=== PATIENT | male | born 1985 | race African-American/Black ===

== ENCOUNTER 2021-03-11 03:53 | Inpatient (IN) | payer MEDICAID ==
[~2021-03-11] VITALS: Ht 200.7 cm; Wt 107.0 kg
[2021-03-11] MEDS ORDERED: SODIUM CHLORIDE 0.9% 1,000 ML IV ONE (04:15)
[2021-03-11 05:30] LABS: BASOPHILS % 0.4 % (0.0-2.0); EOSINOPHILS % 0.1 % (0.0-5.0); HEMATOCRIT. 45.2 % (42.0-52.0); LYMPHOCYTES % 19.9 % (20.0-50.0); MEAN CORPUSCULAR HEMOGLOBIN 30.2 pg (28.0-32.0); MEAN CORPUSCULAR VOLUME 90.7 fL (80.0-94.0); MEAN PLATELET VOLUME 9.8 fl (7.4-10.4); MONOCYTES % 10.1 % (2.0-8.0); NEUTROPHILS % 69.5 % (40.0-76.0); PLATELET 143 x1000/uL (130-400); RED BLOOD CELL COUNT 4.98 mill/uL (4.7-6.1); RED CELL DISTRIBUTION WIDTH 13.7 % (11.6-14.6)
[2021-03-11 05:30] LABS: BG BASE EXCESS -15.1 mmol/L (-2.0-2.0); BG CARBOXYHEMOGLOBIN 0.1 % (0.5-1.5); BG DEOXYHEMOGLOBIN 1.3 % (0.0-5.0); BG HCO3 ACT 9.5 mmol/L (22.0-26.0); BG METHEMOGLOBIN 0.1 % (0.0-1.5); BG OXYGEN SATURATION 98.7 % (92.0-98.5); BG OXYHEMOGLOBIN 98.5 % (94.0-97.0); BG PCO2 21.1 mmHg (35.0-45.0); BG PO2 156.4 mmHg (75.0-100.0)
[2021-03-11 05:36] LABS: CHLORIDE 108 mEq/L (98-107)
[2021-03-11 05:41] LABS: ETHANOL BLOOD < 10 mg/dL
[2021-03-11] MEDS ORDERED: INSULIN REGULAR (DRIP) 100 UNITS in SODIUM CHLORIDE 0.9% 99 ML IV ONE (05:45)
[2021-03-11] MEDS ORDERED: INSULIN REGULAR (DRIP) 100 UNITS in SODIUM CHLORIDE 0.9% 99 ML IV NR (06:00)
[2021-03-11 07:03] LABS: *AMPHETAMINES SCREEN URINE NEGATIVE (NEGATIVE); *BARBITURATES SCREEN URINE NEGATIVE (NEGATIVE)
[2021-03-11 07:05] LABS: *BENZODIAZEPINES SCREEN URINE NEGATIVE (NEGATIVE); *COCAINE SCREEN URINE NEGATIVE (NEGATIVE); CANNABINOID URINE SCREEN NEGATIVE (NEGATIVE); METHADONE URINE SCREEN NEGATIVE (NEGATIVE); OPIATES URINE SCREEN NEGATIVE (NEGATIVE); PHENCYCLIDINE URINE SCREEN NEGATIVE (NEGATIVE)
[2021-03-11] MEDS ORDERED: KETOROLAC 15MG/ML VIAL IV PRN (07:30)
[2021-03-11] MEDS ORDERED: NITROGLYCERIN 0.4MG TABLET SL SL PRN (07:30)
[2021-03-11] MEDS ORDERED: ENOXAPARIN 40MG/0.4ML SYR SUBCUT SCH (07:30)
[2021-03-11] MEDS ORDERED: ZOLPIDEM TARTRATE 5MG TABLET PO PRN (07:30)
[2021-03-11] MEDS ORDERED: DEXTROSE 50% WATER 50ML SYRINGE IV PRN ×2 (07:30)
[2021-03-11] MEDS ORDERED: ACETAMINOPHEN 325MG TABLET PO PRN ×2 (07:30)
[2021-03-11] MEDS ORDERED: ONDANSETRON HCL 4MG/2ML INJ IV PRN (07:30)
[2021-03-11] MEDS ORDERED: GUAIFENESIN 200MG/10ML SUGAR FREE UDC PO PRN (07:30)
[2021-03-11] MEDS ORDERED: IPRATROPIUM/ALBUTEROL 0.5-3(2.5)MG/3ML NEB NEB PRN (07:30)
[2021-03-11] MEDS ORDERED: DOCUSATE SODIUM 100MG CAPSULE PO PRN (07:30)
[2021-03-11] MEDS: BLOOD SUGAR DIAGNOSTIC STRIP TEST SCH ×16 (08:23→23:41)
[2021-03-11] MEDS: SODIUM CHLORIDE 0.9% 1,000 ML IV SCH ×3 (08:26→21:37)
[2021-03-11 08:31] LABS: FOLIC ACID (FOLATE) SERUM >20 ng/mL ng/mL (>5.38)
[2021-03-11 08:42] LABS: VITAMIN B12 SERUM >2000 pg/mL pg/mL (211-911)
[2021-03-11] MEDS: FAMOTIDINE 20MG TABLET PO SCH ×2 (09:25→21:30)
[2021-03-11] MEDS: ENOXAPARIN 30MG/0.3ML SYR SUBCUT SCH ×2 (09:26→21:31)
[2021-03-11] MEDS ORDERED: INSULIN REGULAR (DRIP) 100 UNITS in SODIUM CHLORIDE 0.9% 100 ML IV SCH (12:00)
[2021-03-11 23:58] LABS: CREATINE KINASE MB FRACTION 12.9 ng/mL (0.5-3.6)
[2021-03-12] MEDS: BLOOD SUGAR DIAGNOSTIC STRIP TEST SCH ×13 (00:20→21:00)
[2021-03-12] MEDS: SODIUM CHLORIDE 0.9% 1,000 ML IV SCH ×3 (04:39→17:20)
[2021-03-12 04:57] LABS: BASOPHILS % 0.3 % (0.0-2.0); EOSINOPHILS % 0.8 % (0.0-5.0); HEMATOCRIT. 39.8 % (42.0-52.0); LYMPHOCYTES % 33.7 % (20.0-50.0); MEAN CORPUSCULAR HEMOGLOBIN 30.4 pg (28.0-32.0); MEAN CORPUSCULAR VOLUME 86.2 fL (80.0-94.0); MEAN PLATELET VOLUME 9.4 fl (7.4-10.4); MONOCYTES % 7.3 % (2.0-8.0); NEUTROPHILS % 57.9 % (40.0-76.0); PLATELET 102 x1000/uL (130-400); RED BLOOD CELL COUNT 4.61 mill/uL (4.7-6.1); RED CELL DISTRIBUTION WIDTH 12.9 % (11.6-14.6)
[2021-03-12 05:03] LABS: CHLORIDE 116 mEq/L (98-107)
[2021-03-12 05:10] LABS: PHOSPHORUS 0.4 mg/dL (2.5-4.9)
[2021-03-12 08:23] LABS: CHLORIDE 114 mEq/L (98-107)
[2021-03-12] MEDS: FAMOTIDINE 20MG TABLET PO SCH (08:48)
[2021-03-12] MEDS: ENOXAPARIN 30MG/0.3ML SYR SUBCUT SCH ×2 (08:49→21:00)
[2021-03-12] MEDS ORDERED: POTASSIUM CHLORIDE 20MEQ/PACKET PO NR (10:15)
[2021-03-12] MEDS ORDERED: DEXTROSE 50% WATER 50ML SYRINGE IV PRN (10:15)
[2021-03-12] MEDS ORDERED: INSULIN GLARGINE UD 100 UNITS/ML SYR SUBCUT SCH (10:45)
[2021-03-12] MEDS ORDERED: POTASSIUM PHOS,M-BASIC-D-BASIC 30 MMOL in SODIUM CHLORIDE 0.9% 500 ML IV NR (10:45)
[2021-03-12] MEDS: INSULIN LISPRO 100 UNITS/ML SUBCUT SCH ×4 (11:30→17:00)
[2021-03-12 20:00] VITALS: BP 122/76
[2021-03-12 22:07] VITALS: BP 122/74
[2021-03-12] MEDS ORDERED: PNEUMOCOCCAL VACCINE IM ONE (23:00)
[2021-03-12] MEDS ORDERED: INFLUENZA VACCINE IM ONE (23:00)
[2021-03-13] VITALS: BP 126/79
[2021-03-13] MEDS: FAMOTIDINE 20MG TABLET PO SCH ×3 (00:39→22:02)
[2021-03-13] MEDS: INSULIN LISPRO 100 UNITS/ML SUBCUT SCH ×8 (00:52→22:09)
[2021-03-13] MEDS: SODIUM CHLORIDE 0.9% 1,000 ML IV SCH ×4 (00:53→20:18)
[2021-03-13 04:00] VITALS: BP 120/72
[2021-03-13] MEDS: BLOOD SUGAR DIAGNOSTIC STRIP TEST SCH ×4 (07:00→21:48)
[2021-03-13 08:00] VITALS: BP 109/97
[2021-03-13 08:52] LABS: BASOPHILS % 0.2 % (0.0-2.0); EOSINOPHILS % 1.3 % (0.0-5.0); HEMATOCRIT. 37.8 % (42.0-52.0); HEMOGLOBIN. 12.5 g/dL (14.0-18.0); LYMPHOCYTES % 44.3 % (20.0-50.0); MEAN CORPUSCULAR HEMOGLOBIN 28.9 pg (28.0-32.0); MEAN CORPUSCULAR VOLUME 87.3 fL (80.0-94.0); MEAN PLATELET VOLUME 9.1 fl (7.4-10.4); MONOCYTES % 11.4 % (2.0-8.0); NEUTROPHILS % 42.8 % (40.0-76.0); PLATELET 86 x1000/uL (130-400); RED BLOOD CELL COUNT 4.33 mill/uL (4.7-6.1); RED CELL DISTRIBUTION WIDTH 13.2 % (11.6-14.6)
[2021-03-13] MEDS: ENOXAPARIN 30MG/0.3ML SYR SUBCUT SCH ×2 (09:00→21:00)
[2021-03-13 09:19] LABS: CHLORIDE 111 mEq/L (98-107)
[2021-03-13 09:28] LABS: PHOSPHORUS 2.1 mg/dL (2.5-4.9)
[2021-03-13 12:00] VITALS: BP 129/69
[2021-03-13] MEDS ORDERED: POTASSIUM CHLORIDE 20MEQ/PACKET PO NR (14:45)
[2021-03-13 16:00] VITALS: BP 128/68
[2021-03-13] MEDS ORDERED: POTASSIUM PHOS,M-BASIC-D-BASIC 20 MMOL in DEXT 5% WATER 243.3333 ML IV ONE (16:00)
[2021-03-13 20:00] VITALS: BP 115/67
[2021-03-13] MEDS ORDERED: INSULIN GLARGINE UD 100 UNITS/ML SYR SUBCUT SCH (22:00)
[2021-03-14] VITALS: BP 109/64
[2021-03-14 04:00] VITALS: BP 132/64
[2021-03-14] MEDS: SODIUM CHLORIDE 0.9% 1,000 ML IV SCH ×2 (05:17→10:08)
[2021-03-14] MEDS: BLOOD SUGAR DIAGNOSTIC STRIP TEST SCH (06:14)
[2021-03-14 06:58] LABS: BASOPHILS % 0.3 % (0.0-2.0); EOSINOPHILS % 1.2 % (0.0-5.0); HEMATOCRIT. 32.6 % (42.0-52.0); HEMOGLOBIN. 11.3 g/dL (14.0-18.0); LYMPHOCYTES % 49.4 % (20.0-50.0); MEAN CORPUSCULAR HEMOGLOBIN 30.1 pg (28.0-32.0); MEAN CORPUSCULAR VOLUME 87.3 fL (80.0-94.0); MEAN PLATELET VOLUME 9.3 fl (7.4-10.4); NEUTROPHILS % 35.1 % (40.0-76.0); PLATELET 74 x1000/uL (130-400); RED BLOOD CELL COUNT 3.74 mill/uL (4.7-6.1); RED CELL DISTRIBUTION WIDTH 13.1 % (11.6-14.6)
[2021-03-14 07:38] LABS: CHLORIDE 113 mEq/L (98-107)
[2021-03-14 07:42] LABS: PHOSPHORUS 3.2 mg/dL (2.5-4.9)
[2021-03-14 08:00] VITALS: BP 127/79
[2021-03-14] MEDS: FAMOTIDINE 20MG TABLET PO SCH (08:54)
[2021-03-14] MEDS: INSULIN LISPRO 100 UNITS/ML SUBCUT SCH ×2 (09:00→09:01)
[2021-03-14] MEDS ORDERED: ENOXAPARIN 40MG/0.4ML SYR SUBCUT SCH (09:00)
[2021-03-14] MEDS ORDERED: POTASSIUM CHLORIDE 20MEQ TABLET SR PO SCH (10:00)
[2021-03-14 10:08] VITALS: BP 127/79
[2021-03-14] MEDS ORDERED: KCL 20MEQ/100ML PREMIX 100 ML IV SCH (12:00)
== END 2021-03-14 10:43 | disposition home or self-care (01) | DRG 420 ==
LOC: EDBD 03:53 → ER 03:53 → MICUSO 05:59 → EDBEDREQ 06:06 → EDBEDREQTM 06:28 → EDBEDREQSVC 06:28 → 6EST 03-12 21:45
PROVIDERS: ADMIT Internal Medicine; ATTEND Internal Medicine
DX: E11.10 Type 2 diabetes mellitus with ketoacidosis without coma (principal); N17.0 Acute kidney failure with tubular necrosis; E66.9 Obesity, unspecified; D72.829 Elevated white blood cell count, unspecified; Z20.822 Contact with and (suspected) exposure to COVID-19; Z83.3 Family history of diabetes mellitus
CPT/HCPCS: 36415; 36600; 71045; 80053; 80305; 80320; 82010; 82375; 82550; 82553; 82607; 82746; 82805; 82962; 83036; 83540; 83550; 83605; 83735; 83880; 83930; 83935; 84100; 84443; 84484; 85025; 87426; 90686; 90732; 93005; 93970; 99285; J1650; J1815; J3480; J3490; J7030; J7040; J7050; J7060; G0480